=== PATIENT | female | born 2000 | race Caucasian/White ===

== ENCOUNTER 2022-01-10 16:45 | Emergency (ER) | payer MEDICAID ==
[~2022-01-10] VITALS: Ht 162.6 cm; Wt 61.0 kg
[2022-01-10 21:30] VITALS: BP 118/66
== END 2022-01-10 21:31 | disposition home or self-care (01) ==
LOC: ER 16:45
DX: J06.9 Acute upper respiratory infection, unspecified (principal)
CPT/HCPCS: 99281

== ENCOUNTER 2022-01-25 14:12 | Emergency (ER) | payer MEDICAID ==
[~2022-01-25] VITALS: Ht 162.6 cm; Wt 61.0 kg
[2022-01-25 14:18] VITALS: BP 125/53
[2022-01-25 19:14] LABS: CLARITY URINE CLOUDY (CLEAR); COLOR URINE YELLOW (YELLOW); KETONES URINE TRACE (NEGATIVE); LEUKOCYTE ESTERASE URINE 3+ (NEGATIVE); NITRITE URINE POSITIVE (NEGATIVE); OCCULT BLOOD URINE 1+ (NEGATIVE); PROTEIN URINE 1+ (NEGATIVE); SPECIFIC GRAVITY URINE 1.024 (1.005-1.030); UROBILINOGEN URINE 0.2 E.U./dL (0.2-1.0)
[2022-01-25] MEDS ORDERED: NITR-87 MT (19:21)
[2022-01-25] MEDS ORDERED: PYR200 MT (19:21)
== END 2022-01-25 20:04 | disposition home or self-care (01) ==
LOC: ER 14:12
DX: N39.0 Urinary tract infection, site not specified (principal)
CPT/HCPCS: 81003; 81025; 87077; 87186; 99283